=== PATIENT | male | born 1985 | race Caucasian/White ===

== ENCOUNTER 2023-04-28 18:44 | Emergency (ER) | payer MEDICAID ==
[~2023-04-28] VITALS: Ht 162.6 cm; Wt 73.0 kg
[~2023-04-28 18:44] MED LIST: SULF1TAB48 PO
[2023-04-28 18:59] VITALS: O2SAT 99
[2023-04-28 19:45] LABS: BASOPHILS % 0.2 % (0.0-2.0); LYMPHOCYTES % 17.9 % (20.0-50.0); MEAN CORPUSCULAR HEMOGLOBIN 27.9 pg (28.0-32.0); MEAN CORPUSCULAR HGB CONC 33.4 g/dL (31.0-37.0); MEAN CORPUSCULAR VOLUME 83.4 fL (80.0-94.0); MEAN PLATELET VOLUME 11.2 fl (7.4-10.4); MONOCYTES % 8.5 % (2.0-8.0); NEUTROPHILS % 73.4 % (40.0-76.0); PLATELET 65 x1000/uL (130-400); RED CELL DISTRIBUTION WIDTH 15.6 % (11.6-14.6); WHITE BLOOD COUNT 7.1 x1000/uL (4.5-11.0)
[2023-04-28 19:58] LABS: ALANINE AMINOTRANSFERASE 51 IU/L (10-49); ALBUMIN 4.3 g/dL (3.2-4.8); ASPARTATE AMINOTRANSFERASE 19 IU/L (<34); BILIRUBIN TOTAL 0.5 mg/dL (0.1-1.0); CALCIUM 9.8 mg/dL (8.7-10.4); CARBON DIOXIDE 25 mEq/L (21-32); CHLORIDE 102 mEq/L (98-107); CREATININE 0.9 mg/dL (0.6-1.3); GLUCOSE 152 mg/dL (70-105); POTASSIUM 3.6 mEq/L (3.5-5.1); PROTEIN TOTAL 9.1 g/dL (6.0-8.3); SODIUM 134 mEq/L (136-145); UREA NITROGEN BLOOD 13 mg/dL (9-23)
[2023-04-28 22:15] VITALS: BP 138/74; PULSE 82; RESP 16; TEMP 97.2
== END 2023-04-28 22:18 | disposition home or self-care (01) ==
LOC: ER 18:44
DX: R55 Syncope and collapse (principal)
CPT/HCPCS: 36415; 80053; 85025; 93005; 99284